=== PATIENT | male | born 1950 | race Caucasian/White ===

== ENCOUNTER 2017-12-11 10:11 | Inpatient (IN) | payer MEDICARE ==
[2017-12-11] MEDS ORDERED: FUROSEMIDE 10 MG/ML 4 ML VIAL IV STA (10:56)
[2017-12-11] MEDS ORDERED: NITROGLYCERIN OINT 1 INCH/GM PACKET TOPICAL STA (10:56)
[2017-12-11] MEDS ORDERED: ASPIRIN 81 MG PO STA (10:57)
--- NOTE | 2017-12-11 11:20 | ED ---
General Adult HPI - General Chief complaint: Extremity Problem,Nontraumatic Stated complaint: poss allergic/medication reaction Time Seen by Provider: 12/11/17 10:48 Source: patient Mode of arrival: ambulatory Limitations: no limitations - History of Present Illness Initial comments: This 67-year-old white male presents with a complaint of shortness of breath and leg swelling. This is been present for approximately 6 days. He does complain of exertional dyspnea as well as some orthopnea. He has had a cough with clear production. He denies any fevers or chills. He states that his leg edema is fairly severe. There is no chest pain. He relates that he was seen at [facility] work clinic 6 days ago. The provider apparently listened to his lungs and told him that he has pneumonia. They prescribed him Augmentin and he states that he cannot tolerate it as he was vomiting on it. They stopped this and put him on Bactrim. He seems to think that the swelling is related to the Bactrim. The patient was able to tolerate the Bactrim but this has not helped his symptoms whatsoever. He denies any previous known cardiac disease. He has never had a stress test or echocardiogram. He states that he has no medical complaints but hardly ever goes to see his physician. He normally will have a checkup every 2 years. He denies any other complaints or modifying factors. - Related Data Home Medications Medication Instructions Recorded Confirmed Sulfamethox-Tmp 800-160Mg [Bactrim 1 tab PO DIRECTED 12/11/17 12/11/17 DS 800-160 mg] Allergies Allergy/AdvReac Type Severity Reaction Status Date / Time No Known Allergies Allergy Verified 12/11/17 11:02 Review of Systems ROS Statement: Those systems with pertinent positive or pertinent negative responses have been documented in the HPI. ROS Other: All systems not noted in ROS Statement are negative. Past Medical History Past Medical History: Pneumonia History of Any Multi-Drug Resistant Organisms: None Reported Past Surgical History: No Surgical Hx Reported Past Psychological History: No Psychological Hx Reported Smoking Status: Never smoker Past Alcohol Use History: None Reported Past Drug Use History: None Reported General Exam - General Exam Comments Initial Comments: GENERAL: The patient is well nourished and well hydrated. VITAL SIGNS: Heart rate, blood pressure, respiratory rate reviewed as recorded in nurse's notes. EYES: Pupils are round and reactive. Extraocular movements are intact. No conjunctival / lid redness or swelling. ENT: No external evidence of injury, swelling, or ecchymosis. Airway is patent. Throat is clear. NECK: Nontender. No swelling or evidence of injury. No subcutaneous emphysema. Trachea is midline. No thyroid mass. HEART: Tachycardic irregular rhythm. Good peripheral pulses. LUNGS/CHEST: Mild Rales noted bilateral chest. No ecchymosis, subcutaneous emphysema, or tenderness. ABDOMEN: Abdomen soft without tenderness. No palpable masses or organomegaly. No peritoneal signs. No abdominal wall swelling or ecchymosis. EXTREMITIES: No extremity tenderness. Normal muscle tone and function. No thoracolumbar tenderness. There is significant bilateral lower extremity pitting edema from the knee down. NEUROLOGIC: Sensation is grossly intact. Cranial nerve exam reveals face is symmetrical, tongue is midline, speech is clear. SKIN: No abrasions or ecchymosis is noted. No induration or masses noted. PSYCHIATRIC: Alert and oriented. Appropriate behavior and judgment. Limitations: no limitations Course Vital Signs 12/11/17 12/11/17 12/11/17 10:13 11:31 12:25 Temperature 97.0 F L Pulse Rate 64 122 H 125 H Respiratory 18 16 20 Rate Blood Pressure 149/103 131/93 O2 Sat by Pulse 96 95 97 Oximetry Medical Decision Making - Medical Decision Making The patient was seen and examined. All diagnostics were reviewed. An IV is established and patient receives 80 mg of Lasix IV, Nitropaste, and aspirin. The EKG is done and shows atrial fibrillation with rapid ventricular response and a heart rate of 131. An occasional PVC is noted. There is no acute ST-T wave changes identified. The NC interval is not measurable, the QRS duration is 76, and the QTC intervals 481. The patient's laboratory does show elevation of the BNP. A Cardizem drip is started. It is felt as though he does have atrial fibrillation with rapid ventricular response as well as a degree of congestive heart failure and would require admission to the hospital. The chest x-ray does show some minimal changes of congestive heart failure as well. The case will be discussed with medicine shortly and patient will be admitted to the telemetry unit for full admit. I did discuss with him the need to be on heparin and he refuses. Risks and benefits were discussed and ultimately detail but he still refuses. He initially is reluctant to be admitted to the hospital but eventually does agree. The chest x-ray shows evidence of congestive heart failure. They also note some patchy atelectasis or developing call consolidation in the inferior lingula. He currently does not have any other signs of infection such as an elevated white count or fever. Is felt that his changes are more likely related to his congestive heart failure. Case is discussed with Dr. Hinton and he is agreeable to admission. Approximately 30 minutes of critical care time is utilized and the treatment of the patient. - Lab Data Result diagrams: 12/11/17 11:21 12/11/17 11:21 Lab Results 12/11/17 12/11/17 12/11/17 Range/Units 11:21 11:21 11:21 WBC 10.6 (3.8-10.6) k/uL RBC 5.31 (4.30-5.90) m/uL Hgb 14.2 (13.0-17.5) gm/dL Hct 46.5 (39.0-53.0) % MCV 87.6 (80.0-100.0) fL MCH 26.7 (25.0-35.0) pg MCHC 30.5 L (31.0-37.0) g/dL RDW 14.0 (11.5-15.5) % Plt Count 224 (150-450) k/uL Neutrophils % 64 % Lymphocytes % 23 % Monocytes % 7 % Eosinophils % 3 % Basophils % 1 % Neutrophils # 6.8 (1.3-7.7) k/uL Lymphocytes # 2.5 (1.0-4.8) k/uL Monocytes # 0.7 (0-1.0) k/uL Eosinophils # 0.3 (0-0.7) k/uL Basophils # 0.1 (0-0.2) k/uL Hypochromasia Slight PT (9.0-12.0) sec INR (<1.2) APTT (22.0-30.0) sec Sodium (137-145) mmol/L Potassium (3.5-5.1) mmol/L Chloride (98-107) mmol/L Carbon Dioxide (22-30) mmol/L Anion Gap mmol/L BUN (9-20) mg/dL Creatinine (0.66-1.25) mg/dL Est GFR (MDRD) Af Amer (>60 ml/min/1.73 sqM) Est GFR (MDRD) Non-Af (>60 ml/min/1.73 sqM) Glucose (74-99) mg/dL Calcium (8.4-10.2) mg/dL Total Bilirubin (0.2-1.3) mg/dL AST (17-59) U/L ALT (21-72) U/L Alkaline Phosphatase (38-126) U/L Total Creatine Kinase 59 (55-170) U/L CK-MB (CK-2) 0.9 (0.0-2.4) ng/mL CK-MB (CK-2) Rel Index 1.5 Troponin I 0.028 (0.000-0.034) ng/mL NT-Pro-B Natriuret Pep 1140 pg/mL Total Protein (6.3-8.2) g/dL Albumin (3.5-5.0) g/dL 12/11/17 12/11/17 Range/Units 11:21 11:21 WBC (3.8-10.6) k/uL RBC (4.30-5.90) m/uL Hgb (13.0-17.5) gm/dL Hct (39.0-53.0) % MCV (80.0-100.0) fL MCH (25.0-35.0) pg MCHC (31.0-37.0) g/dL RDW (11.5-15.5) % Plt Count (150-450) k/uL Neutrophils % % Lymphocytes % % Monocytes % % Eosinophils % % Basophils % % Neutrophils # (1.3-7.7) k/uL Lymphocytes # (1.0-4.8) k/uL Monocytes # (0-1.0) k/uL Eosinophils # (0-0.7) k/uL Basophils # (0-0.2) k/uL Hypochromasia PT 10.8 (9.0-12.0) sec INR 1.1 (<1.2) APTT 22.9 (22.0-30.0) sec Sodium 140 (137-145) mmol/L Potassium 5.1 (3.5-5.1) mmol/L Chloride 105 (98-107) mmol/L Carbon Dioxide 29 (22-30) mmol/L Anion Gap 6 mmol/L BUN 20 (9-20) mg/dL Creatinine 0.90 (0.66-1.25) mg/dL Est GFR (MDRD) Af Amer >60 (>60 ml/min/1.73 sqM) Est GFR (MDRD) Non-Af >60 (>60 ml/min/1.73 sqM) Glucose 118 H (74-99) mg/dL Calcium 9.1 (8.4-10.2) mg/dL Total Bilirubin 1.4 H (0.2-1.3) mg/dL AST 57 (17-59) U/L ALT 83 H (21-72) U/L Alkaline Phosphatase 70 (38-126) U/L Total Creatine Kinase (55-170) U/L CK-MB (CK-2) (0.0-2.4) ng/mL CK-MB (CK-2) Rel Index Troponin I (0.000-0.034) ng/mL NT-Pro-B Natriuret Pep pg/mL Total Protein 6.3 (6.3-8.2) g/dL Albumin 3.6 (3.5-5.0) g/dL Disposition Clinical Impression: Congestive heart failure, Hypertension, Lower extremity edema, Dyspnea, Atrial fibrillation with rapid ventricular response Disposition: ADMITTED IP TO THIS HOSP Condition: Fair Referrals: None,Stated [Primary Care Provider] - 1-2 days Time of Disposition: 13:12 Decision Date: 12/11/17 Decision Time: 13:13
[2017-12-11 11:36] LABS: Basophils # (A) 0.1 k/uL (0-0.2); Basophils % (A) 1 %; Eosinophils # (A) 0.3 k/uL (0-0.7); Eosinophils % (A) 3 %; HCT 46.5 % (39.0-53.0); HGB 14.2 gm/dL (13.0-17.5); Hypochromasia Slight; Lymphocytes # (A) 2.5 k/uL (1.0-4.8); Lymphocytes % (A) 23 %; MCH 26.7 pg (25.0-35.0); MCHC 30.5 g/dL (31.0-37.0); MCV 87.6 fL (80.0-100.0); Mean Platelet Volume 8.3; Monocytes # (A) 0.7 k/uL (0-1.0); Monocytes % (A) 7 %; Neutrophils # (A) 6.8 k/uL (1.3-7.7); Neutrophils % (A) 64 %; Platelet Count 224 k/uL (150-450); RBC 5.31 m/uL (4.30-5.90); WBC 10.6 k/uL (3.8-10.6)
[2017-12-11 11:45] LABS: ALT 83 U/L (21-72); AST 57 U/L (17-59); Albumin 3.6 g/dL (3.5-5.0); Alkaline Phosphatase 70 U/L (38-126); Anion Gap 6 mmol/L; Blood Urea Nitrogen 20 mg/dL (9-20); Calcium 9.1 mg/dL (8.4-10.2); Carbon Dioxide 29 mmol/L (22-30); Chloride 105 mmol/L (98-107); Glucose 118 mg/dL (74-99); Potassium 5.1 mmol/L (3.5-5.1); Sodium 140 mmol/L (137-145); Total Bilirubin 1.4 mg/dL (0.2-1.3); Total Protein 6.3 g/dL (6.3-8.2)
[2017-12-11 12:02] LABS: INR 1.1 (<1.2); Partial Thromboplastin Time 22.9 sec (22.0-30.0); Prothrombin Time 10.8 sec (9.0-12.0)
[2017-12-11 12:15] LABS: Creatine Kinase MB 0.9 ng/mL (0.0-2.4); Troponin I 0.028 ng/mL (0.000-0.034)
[2017-12-11] MEDS: DILTIAZEM 125 MG in SODIUM CHLORIDE 0.9% 100 ML IV ONE ×2 (12:19→21:23)
--- NOTE | 2017-12-11 13:16 | XR ---
EXAMINATION TYPE: XR chest 2V DATE OF EXAM: 12/11/2017 COMPARISON: None HISTORY: 67-year-old male difficulty breathing TECHNIQUE: PA and lateral views FINDINGS: Heart mildly enlarged. Diffuse interstitial and vascular prominence. Some patchy inferior lingular de nsity. No significant pleural effusion. IMPRESSION: 1. Mild cardiomegaly and interstitial changes. Correlate for possible mild CHF. 2. Some patchy atelectasis or developing consolidation in the inferior lingula.
[2017-12-11] MEDS ORDERED: DILTIAZEM 5 MG/ML 5 ML VIAL IVP STA (14:24)
[2017-12-11] MEDS: NITROGLYCERIN OINT 1 INCH/GM PACKET TOPICAL SCH ×2 (17:24→21:55)
[2017-12-11 18:24] LABS: Creatine Kinase MB 0.7 ng/mL (0.0-2.4); Troponin I 0.029 ng/mL (0.000-0.034)
[2017-12-11] MEDS ORDERED: HEPARIN SOD,PORK IN 0.45% NACL 25,000 UNIT in 0.45% NACL 1 500ML.BAG IV SCH (19:15)
[2017-12-11] MEDS: FUROSEMIDE 10 MG/ML 4 ML VIAL IV SCH (21:54)
[2017-12-12 02:11] LABS: Creatine Kinase MB 0.6 ng/mL (0.0-2.4)
[2017-12-12 02:15] LABS: Troponin I 0.045 ng/mL (0.000-0.034)
[2017-12-12 09:38] VITALS: BMI 33.6
[2017-12-12] MEDS: NITROGLYCERIN OINT 1 INCH/GM PACKET TOPICAL SCH (09:46)
[2017-12-12] MEDS: FUROSEMIDE 10 MG/ML 4 ML VIAL IV SCH (09:46)
--- NOTE | 2017-12-12 10:04 | ECHOF ---
Referral Reason:Heart Failure MEASUREMENTS -------- HEIGHT: 152.4 cm WEIGHT: 108.9 kg BP: RVIDd: 2.9 cm (< 3.3) IVSd: 1.3 cm (0.6 - 1.1) LVIDd: 4.8 cm (3.9 - 5.3) LVPWd: 1.2 cm (0.6 - 1.1) IVSs: 1.4 cm LVIDs: 4.6 cm LVPWs: 1.0 cm LA Diam: 4.5 cm (2.7 - 3.8) LAESV Index (A-L): 46.22 ml/m Ao Diam: 3.4 cm (2.0 - 3.7) AV Cusp: 1.8 cm (1.5 - 2.6) LA Diam: 4.7 cm (2.7 - 3.8) MV EXCURSION: 12.506 mm (> 18.000) MV EF SLOPE: 117 mm/s (70 - 150) EPSS: 1.6 cm MV E Bob: 1.22 m/s MV DecT: 105 ms MV A Bob: 0.01 m/s MV E/A Ratio: 148.09 RAP: 5.00 mmHg RVSP: 31.81 mmHg FINDINGS -------- Atrial fibrillation. This was a techncally difficult study with suboptimal views, , Definity utilized for enhancement of i mages. The left ventricular size is normal. There is mild concentric left ventricular hypertrophy. There is severe global hypokinesis of LV . Overall left ventricular systolic function is severely impair ed with, an EF < 20%. The right ventricle is normal in size. LA is moderately dilated 34-39 ml/m2 The right atrial size is normal. 1.5mg of Definity was utilized for enhancement of images The aortic valve is trileaflet, and appears structurally normal. No aortic stenosis or regurgitation. The mitral valve is normal. Mild mitral regurgitation is present. Mild tricuspid regurgitation present. There is mild pulmonary hypertension. The right ventricular systolic pressure, as measured by Doppler, is 31.81mmHg. Trace/mild (physiologic) pulmonic regurgitation. The aortic root size is normal. There is no pericardial effusion. CONCLUSIONS -------- 1. Atrial fibrillation. 2. This was a techncally difficult study with suboptimal views, , Definity utilized for enhancement o f images. 3. The left ventricular size is normal. 4. There is mild concentric left ventricular hypertrophy. 5. There is severe global hypokinesis of LV . 6. Overall left ventricular systolic function is severely impaired with, an EF < 20%. 7. LA is moderately dilated 34-39 ml/m2 8. 1.5mg of Definity was utilized for enhancement of images 9. The aortic valve is trileaflet, and appears structurally normal. No aortic stenosis or regurgitati on. 10. Mild mitral regurgitation is present. 11. Mild tricuspid regurgitation present. 12. There is mild pulmonary hypertension. 13. Trace/mild (physiologic) pulmonic regurgitation. 14. The aortic root size is normal. 15. There is no pericardial effusion. ROASTER HELPER: Ranjana Pascual RDCS
[2017-12-12 11:24] VITALS: BP 111/82; PULSE 51; RESP 14; TEMP 97.9
[2017-12-12] MEDS ORDERED: LISINOPRIL 2.5 MG TAB PO SCH (12:00)
[2017-12-12] MEDS ORDERED: APIXABAN 5 MG TAB PO SCH (12:00)
[2017-12-12] MEDS ORDERED: ASPIRIN 325 MG TAB PO SCH (12:00)
--- NOTE | 2017-12-12 12:16 | PN ---
PROGRESS NOTE DATE OF SERVICE: 12/12/2017 CHIEF COMPLAINT: Congestive heart failure. HISTORY OF PRESENT ILLNESS: This gentleman states he is doing well. He denies chest pain, shortness of breath, etc. His echocardiogram is ominous, however. He has an EF of less than 20 and has a significant left ventricular hypertrophy and poor function. He still is denying the necessity for any medication treatment. He refused the heparin last night. He was explained that there is significant risk of embolization and stroke with atrial fib. PHYSICAL EXAM: His chest is fairly clear and the cardiac exam demonstrates his atrial fib. A murmur is now heard on systole. Abdomen is soft, nontender. EXTREMITIES: Normal. IMPRESSION: 1. Acute congestive heart failure. 2. Atrial fibrillation with rapid ventricular response, probably chronic. 3. Cardiomyopathy. 4. Cardiac murmur. Possibly D2 mitral insufficiency. 5. Hypertension. PLAN: This gentleman should stay in for complete workup including evaluation of his coronary arteries and be started on appropriate medication for his serious congestive cardiomyopathy and arrhythmias. It is not likely that he will. Communications made with Cardiology regarding his lack of compliance. If he leaves, we will make every effort to have him follow up as soon as possible. MMODL / IJN: [id number] /
--- NOTE | 2017-12-12 12:18 | P.CRDCN ---
History of Present Illness Consult date: 12/12/17 Requesting physician: Jorge Alberto Hinton Consult reason: atrial fibrillation Chief complaint: Shortness of breath and leg swelling History of present illness: This is a 67-year-old gentleman with no prior documented history of hypertension, no diabetes, no hyperlipidemia, who has been being treated as an outpatient for a possible pneumonia. He states he was on an initial antibiotic which she couldn't tolerate, subsequent to that started on another medication, and then noticed shortness of breath with associated leg swelling. He went to see a physician at the walk-in clinic, was advised to come to the hospital for further evaluation. On admission here his EKG showed atrial fibrillation with a rapid ventricular response. Chest x-ray showed mild cardiomegaly and interstitial changes, mild CHF. Some patchy atelectasis or developing consolidation in the inferior lingula. Blood pressure 110/80, heart rate in the 60s. CBC is normal, sodium 140, potassium 5.1, BUN 20, creatinine 0.9. AST 57, ALT 83, total bili 1.4, troponin 0.028, 0.029, 0.045. BNP 1140. An echocardiogram with Doppler study was performed which revealed severe global hypokinesia PLV. Overall left ventricular systolic function was severely impaired with an ejection fraction of less than 20%. Dr. Anglin have a lengthy discussion with the patient regarding the importance of anticoagulation for stroke prevention with the A. fib, he also discussed the fact that the patient was in heart failure, and talked about his significantly reduced LV function. In spite of all of this, patient wishes to sign out of the hospital AGAINST MEDICAL ADVICE. He is extremely stressed about his work situation and feels that he continues to be there. Patient states that he will follow-up with Dr. Hinton tomorrow, and Dr. Anglin in one week. We will discontinue the IV Lasix and start the patient on oral Lasix along with Lopressor, ZIA inhibitor, and Eliquis for anticoagulation. We will check his lytes BUN and creatinine in one week, consider initiating Aldactone as an outpatient, at this time we will not start the Aldactone because of elevated potassium levels. Past Medical History Past Medical History: Pneumonia Additional Past Medical History / Comment(s): Pt states this is the first time he has had pneumonia. History of Any Multi-Drug Resistant Organisms: None Reported Past Surgical History: No Surgical Hx Reported Additional Past Surgical History / Comment(s): Pt states he has never had surgery. Past Anesthesia/Blood Transfusion Reactions: No Reported Reaction Smoking Status: Never smoker - Past Family History Mother Family Medical History: No Reported History Additional Family Medical History / Comment(s): Mother was 76yrs old. She rode her bike to the store, came home and fixed something to eat and had a sudden . Father Family Medical History: No Reported History Additional Family Medical History / Comment(s): Father is 91 yrs old. Medications and Allergies Home Medications Medication Instructions Recorded Confirmed Type Sulfamethox-Tmp 800-160Mg [Bactrim 1 tab PO DIRECTED 12/11/17 12/11/17 History DS 800-160 mg] Allergies Allergy/AdvReac Type Severity Reaction Status Date / Time No Known Allergies Allergy Verified 12/11/17 11:02 Physical Exam Vitals: Vital Signs Temp Pulse Pulse Resp BP BP Pulse Ox 12/12/17 11:24 97.9 F 51 L 14 111/82 93 L 12/12/17 10:59 18 12/12/17 08:00 97.0 F L 64 18 117/74 94 L 12/12/17 04:00 98.7 F 82 18 103/58 95 12/12/17 00:00 98.2 F 59 L 18 111/64 95 12/11/17 20:00 98.4 F 75 18 107/69 97 12/11/17 15:27 96.0 F L 66 18 109/74 93 L 12/11/17 14:41 91 16 160/123 97 12/11/17 14:13 116 H 18 209/154 97 12/11/17 12:25 125 H 20 97 Intake and Output 12/11/17 12/12/17 12/12/17 22:59 06:59 14:59 Intake Total 344.25 180 Output Total 1700 2200 Balance -1355.75 -2200 180 Intake: Intake, IV Titration 104.25 Amount Diltiazem 125 mg In 104.25 Sodium Chloride 0.9% 100 ml @ 5 MG/HR 5 mls/hr IV .Q24H ONE Rx#:[id number] Oral 240 180 Output: Urine 1700 2200 Other: Voiding Method Toilet Toilet Urinal Urinal # Voids 1 1 Weight 106.4 kg 106.4 kg Patient Weight 12/13/17 06:59 Weight 106.4 kg PHYSICAL EXAMINATION: HEENT: Head is atraumatic, normocephalic. Pupils equal, round. Neck is supple. There is elevated jugular venous pressure up to the angle of the jaw. HEART EXAMINATION: S1 and S2 irregularly irregular CHEST EXAMINATION: Lungs reveal rales to bilateral bases. ABDOMEN: Soft, nontender. Bowel sounds are heard. No organomegaly noted. EXTREMITIES: 2+ peripheral pulses with trace evidence of peripheral edema and no calf tenderness noted. NEUROLOGIC patient is awake, alert and oriented -3. . Results 12/11/17 11:21 12/11/17 11:21 Cardiac Enzymes 12/11/17 12/11/17 12/11/17 Range/Units 11:21 11:21 17:34 AST 57 (17-59) U/L CK-MB (CK-2) 0.9 0.7 (0.0-2.4) ng/mL Troponin I 0.028 0.029 (0.000-0.034) ng/mL 12/12/17 Range/Units 01:26 AST (17-59) U/L CK-MB (CK-2) 0.6 (0.0-2.4) ng/mL Troponin I 0.045 H* (0.000-0.034) ng/mL Coagulation 12/11/17 Range/Units 11:21 PT 10.8 (9.0-12.0) sec APTT 22.9 (22.0-30.0) sec Comprehensive Metabolic Panel 12/11/17 Range/Units 11:21 Sodium 140 (137-145) mmol/L Potassium 5.1 (3.5-5.1) mmol/L Chloride 105 (98-107) mmol/L Carbon Dioxide 29 (22-30) mmol/L BUN 20 (9-20) mg/dL Creatinine 0.90 (0.66-1.25) mg/dL Glucose 118 H (74-99) mg/dL Calcium 9.1 (8.4-10.2) mg/dL AST 57 (17-59) U/L ALT 83 H (21-72) U/L Alkaline Phosphatase 70 (38-126) U/L Total Protein 6.3 (6.3-8.2) g/dL Albumin 3.6 (3.5-5.0) g/dL Current Medications Generic Name Dose Route Start Last Admin Trade Name Marina PRN Reason Stop Dose Admin Aspirin 325 mg 12/12/17 12:00 12/12/17 09:46 Aspirin PO 325 mg DAILY FABIAN Administration Furosemide 40 mg 12/11/17 21:00 12/12/17 09:46 Lasix IV 40 mg Q12H FABIAN Administration Diltiazem HCl 125 mg/ Sodium 125 mls @ 5 mls/hr 12/11/17 11:48 12/11/17 21:23 Chloride IV 12/12/17 11:47 15 mg/hr .Q24H ONE 15 mls/hr Protocol Administration 5 MG/HR Heparin Sodium/Sodium Chloride 500 mls @ 39.19 mls/hr 12/11/17 19:15 25,000 unit/ Sodium Chloride IV .[id number] [facility] Protocol 18 UNITS/KG/HR Nitroglycerin 1 inch 12/11/17 18:00 12/12/17 09:46 Nitro-Bid Oint TOPICAL 1 inch QID FABIAN Administration Intake and Output 12/11/17 12/12/17 12/12/17 22:59 06:59 14:59 Intake Total 344.25 180 Output Total 1700 2200 Balance -1355.75 -2200 180 Intake: Intake, IV Titration 104.25 Amount Diltiazem 125 mg In 104.25 Sodium Chloride 0.9% 100 ml @ 5 MG/HR 5 mls/hr IV .Q24H ONE Rx#:[id number] Oral 240 180 Output: Urine 1700 2200 Other: Voiding Method Toilet Toilet Urinal Urinal # Voids 1 1 Weight 106.4 kg 106.4 kg Patient Weight 12/13/17 06:59 Weight 106.4 kg 12/11/17 11:21 12/11/17 11:21 EKG Interpretations (text) EKG shows atrial fibrillation with a rapid ventricular response. Assessment and Plan Plan: Assessment and plan #1 systolic congestive heart failure acute on chronic #2 newly diagnosed cardiomyopathy with an ejection fraction of less than 20%, unknown etiology. #3 atrial fibrillation with rapid ventricular response, new onset, unsure if it is paroxysmal or chronic at this time. Plan We will discontinue the IV Lasix and start the patient on Lasix 40 mg by mouth twice a day. Initiate beta dalila, ZIA inhibitor, and start the patient on Eliquis 5 mg one tablet by mouth twice a day, discontinue IV heparin. Check lytes BUN and creatinine in one week. Patient has been strongly advised to stay in the hospital for further treatment, he however wishes to sign out AGAINST MEDICAL ADVICE. A follow-up appointment has been made with Dr. Hinton for tomorrow, and we will schedule him to see Dr. Anglin within one week in the office. DNP note has been reviewed, I agree with a documented findings and plan of care. Patient was seen and examined.
--- NOTE | 2017-12-12 12:22 | HP ---
HISTORY AND PHYSICAL CHIEF COMPLAINT: Shortness of breath. HISTORY OF PRESENT ILLNESS: This is the first admission for this 67-year-old white male. He considers himself to be in excellent health and has never had and denies any health problems, being under doctor's care, taking any medications, etc. He presented to the emergency room with shortness of breath. He also noticed that he was having a little bit of swelling. In the emergency room, he was found to be in atrial fibrillation with a heart rate around 135 beats a minute and he was dyspneic. BNP was also elevated at 1140. He denied any chest pain. He denied history of rheumatic fever, murmurs, orthopnea, PND, cough, hemoptysis, history of significant hypertension, etc. He states that he had been told in the past that his blood pressure is up occasionally, but that, "whenever he would sit down and rest, it would go down to normal". In the emergency room, his blood pressure was significantly elevated, but did come down after several readings. He denies any neurologic deficits, change in vision or hearing, syncope, etc. He is completely in denial and states there is nothing wrong with him and he has never had any health problems. He refuses to take any medicine or undergo any procedures no matter what is found. REVIEW OF SYSTEMS: He has had no other history. He has had no abdominal pain, nausea, vomiting, melena, hematochezia, jaundice, hematuria, frequency, urgency, nocturia, hesitancy, renal failure, diabetes, etc. Past medical history, family history, personal and social histories are unremarkable and noncontributory. He is not allergic to any medicine and he is not taking any. He has had no surgery. He does not use alcohol or smoke. He still works as a construction equipment mechanic helper. PHYSICAL EXAM: Blood pressure is 209/154 with a pulse of 135 and irregularly irregular. Respirations were 43. He is afebrile. In general, he appeared to be overweight in no acute distress. Skin color is normal. Skin is warm, dry. Lymph nodes not enlarged. Head, ears, eyes, nose, mouth, and throat were normal and neck veins could not be assessed. Thyroid was not enlarged. The chest demonstrated fairly good breath sounds bilaterally with occasional rales. Cardiac exam demonstrated tachycardia and no definite murmur or S3 or S4 was heard. The abdomen is soft, nontender without any visceromegaly or masses. Bowel sounds are present. Extremities are normal. Neurologically, he is intact. He is admitted to the hospital with the diagnoses: 1. Acute congestive heart failure. 2. Atrial fibrillation with rapid ventricular response. 3. Hypertension. PLAN: 1. Bed rest. 2. IV fluids. 3. Control blood pressure. 4. Echocardiogram. 5. Cardiology consult. 6. Anticoagulate with heparin (refused). MMODL / IJN: [id number] /
[2017-12-12] MEDS ORDERED: FUROSEMIDE 40 MG TAB PO SCH (16:00)
[2017-12-12] MEDS ORDERED: METOPROLOL TARTRATE 25 MG TAB PO SCH (21:00)
--- NOTE | 2017-12-15 16:28 | DS ---
DISCHARGE SUMMARY CHIEF COMPLAINT: Shortness of breath. HISTORY OF PRESENT ILLNESS AND PHYSICAL EXAM: Details of this man's history and physical can be found in the initial workup. LABORATORY STUDIES: While he was in a hospital he had laboratory studies details which can be found in the laboratory section of chart. COURSE IN HOSPITAL: After admission he was placed in bedrest, started on intravenous fluids and seen by Cardiology. His studies indicated that he had a significant congestive cardiomyopathy with a EF of less than 25%. He was very reluctant to accept the diagnosis and was resistant to any further testing or treatment. He was finally convinced to go home on some medication and followup shortly. He will be discharged and seen in a day or two. FINAL DIAGNOSES: 1. Acute congestive heart failure. 2. Chronic congestive heart failure. 3. Cardiomyopathy. 4. Atrial fibrillation. 5. Hypertension. 6. Murmur. OPERATIONS: None. CONSULTATION: Cardiology. He is improved. MMLARAL / LANCEN: [id number] /
== END 2017-12-12 12:58 | disposition home or self-care (01) | DRG 292 ==
LOC: EC 10:11 → 6SEL 13:26
PROVIDERS: ADMIT Family Medicine; ATTEND Family Medicine
DX: I11.0 Hypertensive heart disease with heart failure (principal); J98.11 Atelectasis; I42.9 Cardiomyopathy, unspecified; I48.0 Paroxysmal atrial fibrillation; I50.23 Acute on chronic systolic (congestive) heart failure; I49.3 Ventricular premature depolarization; I48.2 Chronic atrial fibrillation; I34.0 Nonrheumatic mitral (valve) insufficiency
CPT/HCPCS: 36415; 71046; 80053; 82550; 82553; 83880; 84484; 85025; 85610; 85730; 87040; 93005; 93306; 96374; 96375; 99285

== ENCOUNTER 2017-12-18 12:20 | Emergency (ER) | payer MEDICARE ==
[2017-12-18 12:46] VITALS: TEMP 99.2
[2017-12-18 13:12] LABS: Basophils % (A) 1 %; Eosinophils # (A) 0.2 k/uL (0-0.7); Eosinophils % (A) 4 %; HCT 45.1 % (39.0-53.0); HGB 13.8 gm/dL (13.0-17.5); Hypochromasia Slight; Lymphocytes # (A) 1.1 k/uL (1.0-4.8); Lymphocytes % (A) 18 %; MCH 26.6 pg (25.0-35.0); MCHC 30.6 g/dL (31.0-37.0); Mean Platelet Volume 7.9; Monocytes # (A) 0.8 k/uL (0-1.0); Monocytes % (A) 13 %; Neutrophils # (A) 3.6 k/uL (1.3-7.7); Neutrophils % (A) 61 %; Platelet Count 181 k/uL (150-450); RBC 5.19 m/uL (4.30-5.90); RDW 13.9 % (11.5-15.5); WBC 5.9 k/uL (3.8-10.6)
[2017-12-18 13:22] LABS: INR 1.1 (<1.2); Partial Thromboplastin Time 25.8 sec (22.0-30.0); Prothrombin Time 10.8 sec (9.0-12.0)
[2017-12-18 13:24] LABS: ALT 51 U/L (21-72); AST 35 U/L (17-59); Albumin 3.3 g/dL (3.5-5.0); Alkaline Phosphatase 78 U/L (38-126); Anion Gap 9 mmol/L; Blood Urea Nitrogen 24 mg/dL (9-20); Calcium 8.4 mg/dL (8.4-10.2); Carbon Dioxide 31 mmol/L (22-30); Chloride 98 mmol/L (98-107); Glucose 142 mg/dL (74-99); Potassium 4.1 mmol/L (3.5-5.1); Sodium 138 mmol/L (137-145); Total Bilirubin 0.7 mg/dL (0.2-1.3)
[2017-12-18 13:27] LABS: Creatine Kinase 61 U/L (55-170)
[2017-12-18] MEDS ORDERED: FUROSEMIDE 10 MG/ML 4 ML VIAL IV STA (13:34)
--- NOTE | 2017-12-18 13:38 | ED ---
SOB HPI - General Chief Complaint: Shortness of Breath Stated Complaint: SOB Time Seen by Provider: 12/18/17 13:10 Source: patient, RN notes reviewed Mode of arrival: ambulatory Limitations: no limitations - History of Present Illness Initial Comments: This is a 67-year-old male history of CHF who was seen by his doctor last week who is here today because he has persistent shortness of breath especially orthopnea and some exertional dyspnea. He has a cough when he is concerned he may have pneumonia as well as perhaps CHF. He states he has been losing weight and that does concern him he does have edema to his lower extremities but apparently these are improved over last week. He denies any sore throat rhinorrhea earaches overt chest pain palpitations or other symptoms. The patient does state he believes his Lasix is not working. MD Complaint: shortness of breath, cough - Related Data Previous Rx's Medication Instructions Recorded Apixaban [Eliquis] 5 mg PO BID #60 tab 12/12/17 Furosemide [Lasix] 40 mg PO BID@0900,1600 #60 tab 12/12/17 Lisinopril [Zestril] 2.5 mg PO DAILY #30 tab 12/12/17 Metoprolol Tartrate [Lopressor] 25 mg PO BID #60 tab 12/12/17 Ipratropium/Albuterol Sulfate 2 puff INHALATION QID #1 inhaler 12/18/17 [Combivent Respimat Inhaler] Allergies Allergy/AdvReac Type Severity Reaction Status Date / Time No Known Allergies Allergy Verified 12/18/17 13:28 Review of Systems ROS Statement: Those systems with pertinent positive or pertinent negative responses have been documented in the HPI. ROS Other: All systems not noted in ROS Statement are negative. Past Medical History Past Medical History: Heart Failure, Pneumonia Additional Past Medical History / Comment(s): Pt states this is the first time he has had pneumonia. History of Any Multi-Drug Resistant Organisms: None Reported Past Surgical History: No Surgical Hx Reported Additional Past Surgical History / Comment(s): Pt states he has never had surgery. Past Anesthesia/Blood Transfusion Reactions: No Reported Reaction Past Psychological History: No Psychological Hx Reported Smoking Status: Never smoker Past Alcohol Use History: None Reported Past Drug Use History: None Reported - Past Family History Mother Family Medical History: No Reported History Additional Family Medical History / Comment(s): Mother was 76yrs old. She rode her bike to the store, came home and fixed something to eat and had a sudden . Father Family Medical History: No Reported History Additional Family Medical History / Comment(s): Father is 91 yrs old. General Exam - General Exam Comments Initial Comments: This is a well-developed well-nourished awake alert oriented times 3 male Limitations: no limitations General appearance: alert, in no apparent distress Head exam: Present: atraumatic, normocephalic, normal inspection Eye exam: Present: normal appearance, PERRL, EOMI. Absent: scleral icterus, conjunctival injection, periorbital swelling ENT exam: Present: normal exam, mucous membranes moist Neck exam: Present: normal inspection. Absent: tenderness, meningismus, lymphadenopathy Respiratory exam: Present: rales, decreased breath sounds. Absent: respiratory distress, wheezes, rhonchi, stridor Cardiovascular Exam: Present: tachycardia, irregular rhythm, normal heart sounds. Absent: systolic murmur, diastolic murmur, rubs, gallop, clicks GI/Abdominal exam: Present: soft, normal bowel sounds. Absent: distended, tenderness, guarding, rebound, rigid Extremities exam: Present: full ROM, normal capillary refill, pedal edema, other (Pedal edema up to the knees.). Absent: tenderness, joint swelling, calf tenderness Back exam: Present: normal inspection Neurological exam: Present: alert, oriented X3, CN II-XII intact Psychiatric exam: Present: normal affect, normal mood Skin exam: Present: warm, dry, intact, normal color. Absent: rash Course Vital Signs 12/18/17 12/18/17 12:43 14:17 Temperature 99.2 F Pulse Rate 103 H 77 Respiratory 18 18 Rate Blood Pressure 111/63 120/68 O2 Sat by Pulse 96 96 Oximetry - Reevaluation(s) Reevaluation #1: 12/18/17 15:54 Patient initially is refusing have a CAT scan done. I did discuss this with Dr. Hinton will also suggested the CAT scan be done after explaining the situation. Patient maintains refused and would like to be discharged and try an inhaler instead. I did a long discussion with him lasting 10-15 minutes regarding the findings this is after initial conversation with him earlier. Medical Decision Making - Medical Decision Making The patient does have a recent diagnosis of atrial fibrillation and cardiomyopathy with the ejection fraction less than 25. He has been having orthopnea. He has been losing weight and indicating that his peripheral edema is improving. He does not want to have a CAT scan or further workup at this time he doesn't fact want to be discharged to follow-up with cardiology tomorrow as planned he has agreed to accept an inhaler to see if this helps with his breathing. He is invited to come back at any time for any reason. The patient does state he is feeling better since arrival here. He will continue with his current medications he will follow-up with cardiology and with Dr. Hinton. - Lab Data Result diagrams: 12/18/17 12:53 12/18/17 12:53 Lab Results 12/18/17 12/18/17 12/18/17 Range/Units 12:53 12:53 12:53 WBC 5.9 (3.8-10.6) k/uL RBC 5.19 (4.30-5.90) m/uL Hgb 13.8 (13.0-17.5) gm/dL Hct 45.1 (39.0-53.0) % MCV 87.0 (80.0-100.0) fL MCH 26.6 (25.0-35.0) pg MCHC 30.6 L (31.0-37.0) g/dL RDW 13.9 (11.5-15.5) % Plt Count 181 (150-450) k/uL Neutrophils % 61 % Lymphocytes % 18 % Monocytes % 13 % Eosinophils % 4 % Basophils % 1 % Neutrophils # 3.6 (1.3-7.7) k/uL Lymphocytes # 1.1 (1.0-4.8) k/uL Monocytes # 0.8 (0-1.0) k/uL Eosinophils # 0.2 (0-0.7) k/uL Basophils # 0.0 (0-0.2) k/uL Hypochromasia Slight PT (9.0-12.0) sec INR (<1.2) APTT (22.0-30.0) sec D-Dimer (<0.60) mg/L FEU Sodium (137-145) mmol/L Potassium (3.5-5.1) mmol/L Chloride (98-107) mmol/L Carbon Dioxide (22-30) mmol/L Anion Gap mmol/L BUN (9-20) mg/dL Creatinine (0.66-1.25) mg/dL Est GFR (MDRD) Af Amer (>60 ml/min/1.73 sqM) Est GFR (MDRD) Non-Af (>60 ml/min/1.73 sqM) Glucose (74-99) mg/dL Calcium (8.4-10.2) mg/dL Magnesium (1.6-2.3) mg/dL Total Bilirubin (0.2-1.3) mg/dL AST (17-59) U/L ALT (21-72) U/L Alkaline Phosphatase (38-126) U/L Total Creatine Kinase 61 (55-170) U/L CK-MB (CK-2) <0.2 (0.0-2.4) ng/mL CK-MB (CK-2) Rel Index Troponin I 0.026 (0.000-0.034) ng/mL NT-Pro-B Natriuret Pep 811 pg/mL Total Protein (6.3-8.2) g/dL Albumin (3.5-5.0) g/dL 12/18/17 12/18/17 12/18/17 Range/Units 12:53 12:53 12:53 WBC (3.8-10.6) k/uL RBC (4.30-5.90) m/uL Hgb (13.0-17.5) gm/dL Hct (39.0-53.0) % MCV (80.0-100.0) fL MCH (25.0-35.0) pg MCHC (31.0-37.0) g/dL RDW (11.5-15.5) % Plt Count (150-450) k/uL Neutrophils % % Lymphocytes % % Monocytes % % Eosinophils % % Basophils % % Neutrophils # (1.3-7.7) k/uL Lymphocytes # (1.0-4.8) k/uL Monocytes # (0-1.0) k/uL Eosinophils # (0-0.7) k/uL Basophils # (0-0.2) k/uL Hypochromasia PT 10.8 (9.0-12.0) sec INR 1.1 (<1.2) APTT 25.8 (22.0-30.0) sec D-Dimer (<0.60) mg/L FEU Sodium 138 (137-145) mmol/L Potassium 4.1 (3.5-5.1) mmol/L Chloride 98 (98-107) mmol/L Carbon Dioxide 31 H (22-30) mmol/L Anion Gap 9 mmol/L BUN 24 H (9-20) mg/dL Creatinine 1.00 (0.66-1.25) mg/dL Est GFR (MDRD) Af Amer >60 (>60 ml/min/1.73 sqM) Est GFR (MDRD) Non-Af >60 (>60 ml/min/1.73 sqM) Glucose 142 H (74-99) mg/dL Calcium 8.4 (8.4-10.2) mg/dL Magnesium 2.0 (1.6-2.3) mg/dL Total Bilirubin 0.7 (0.2-1.3) mg/dL AST 35 (17-59) U/L ALT 51 (21-72) U/L Alkaline Phosphatase 78 (38-126) U/L Total Creatine Kinase (55-170) U/L CK-MB (CK-2) (0.0-2.4) ng/mL CK-MB (CK-2) Rel Index Troponin I (0.000-0.034) ng/mL NT-Pro-B Natriuret Pep pg/mL Total Protein 6.0 L (6.3-8.2) g/dL Albumin 3.3 L (3.5-5.0) g/dL 12/18/17 Range/Units 12:53 WBC (3.8-10.6) k/uL RBC (4.30-5.90) m/uL Hgb (13.0-17.5) gm/dL Hct (39.0-53.0) % MCV (80.0-100.0) fL MCH (25.0-35.0) pg MCHC (31.0-37.0) g/dL RDW (11.5-15.5) % Plt Count (150-450) k/uL Neutrophils % % Lymphocytes % % Monocytes % % Eosinophils % % Basophils % % Neutrophils # (1.3-7.7) k/uL Lymphocytes # (1.0-4.8) k/uL Monocytes # (0-1.0) k/uL Eosinophils # (0-0.7) k/uL Basophils # (0-0.2) k/uL Hypochromasia PT (9.0-12.0) sec INR (<1.2) APTT (22.0-30.0) sec D-Dimer 1.28 H (<0.60) mg/L FEU Sodium (137-145) mmol/L Potassium (3.5-5.1) mmol/L Chloride (98-107) mmol/L Carbon Dioxide (22-30) mmol/L Anion Gap mmol/L BUN (9-20) mg/dL Creatinine (0.66-1.25) mg/dL Est GFR (MDRD) Af Amer (>60 ml/min/1.73 sqM) Est GFR (MDRD) Non-Af (>60 ml/min/1.73 sqM) Glucose (74-99) mg/dL Calcium (8.4-10.2) mg/dL Magnesium (1.6-2.3) mg/dL Total Bilirubin (0.2-1.3) mg/dL AST (17-59) U/L ALT (21-72) U/L Alkaline Phosphatase (38-126) U/L Total Creatine Kinase (55-170) U/L CK-MB (CK-2) (0.0-2.4) ng/mL CK-MB (CK-2) Rel Index Troponin I (0.000-0.034) ng/mL NT-Pro-B Natriuret Pep pg/mL Total Protein (6.3-8.2) g/dL Albumin (3.5-5.0) g/dL - EKG Data -: EKG Interpreted by Me (Atrial fibrillation rate 112 QRS 82 ET since QTC of 352/480 nonspecific T-w) - Radiology Data Radiology results: report reviewed (I did review the imaging and reports no acute findings.), image reviewed Disposition Clinical Impression: Orthopnea, Chronic atrial fibrillation, Cardiomyopathy, Bronchospasm Disposition: HOME SELF-CARE Condition: Stable Instructions: Bronchospasm (ED), A-fib (Atrial Fibrillation) (ED), Hypertrophic Cardiomyopathy (ED) Prescriptions: Ipratropium/Albuterol Sulfate [Combivent Respimat Inhaler] 2 puff INHALATION QID #1 inhaler Referrals: Jorge Alberto Hinton MD [Primary Care Provider] - 1-2 days
[2017-12-18 13:40] LABS: Creatine Kinase MB <0.2 ng/mL (0.0-2.4); Troponin I 0.026 ng/mL (0.000-0.034)
--- NOTE | 2017-12-18 14:38 | XR ---
EXAMINATION TYPE: XR chest 2V DATE OF EXAM: 12/18/2017 COMPARISON: 12/11/2017 HISTORY: 67-year-old male difficulty breathing TECHNIQUE: Frontal and lateral views FINDINGS: Heart upper limits of normal in size. Aorta within normal limits. Improved appearance to the intersti tium as compared to prior exam. Some residual densities at the inferior lingula with improvement in a eration as compared to 12/11/2017. No pleural effusion. IMPRESSION: 1. Improving atelectasis or infiltrate at the inferior lingula. 2. Otherwise, no acute process identified.
[2017-12-18] MEDS ORDERED: RX INFO: IV CONTRAST WAS GIVEN 1 EACH MISC MISCELLANE PRN (14:54)
[2017-12-18 16:10] VITALS: BP 92/65; PULSE 106; RESP 20
== END 2017-12-18 16:10 | disposition home or self-care (01) ==
LOC: EC 12:20
DX: J98.01 Acute bronchospasm (principal); I48.91 Unspecified atrial fibrillation; I42.9 Cardiomyopathy, unspecified; Z87.01 Personal history of pneumonia (recurrent)
CPT/HCPCS: 36415; 93005; 85379; 83880; 80053; 82550; 82553; 83735; 84484; 85025; 85610; 85730; 71046; 99285; 96374; J1940

== ENCOUNTER → 2018-01-11 | Outpatient (CLI) | payer MEDICARE ==
--- NOTE | 2018-01-12 19:41 | ECHOF ---
Referral Reason: MEASUREMENTS -------- HEIGHT: 172.7 cm WEIGHT: 102.1 kg BP: 131/83 RVIDd: 3.3 cm (< 3.3) IVSd: 1.0 cm (0.6 - 1.1) LVIDd: 5.2 cm (3.9 - 5.3) LVPWd: 1.1 cm (0.6 - 1.1) IVSs: 1.2 cm LVIDs: 4.8 cm LVPWs: 1.3 cm LA Diam: 3.8 cm (2.7 - 3.8) LAESV Index (A-L): 30.60 ml/m Ao Diam: 3.4 cm (2.0 - 3.7) AV Cusp: 2.3 cm (1.5 - 2.6) MV EXCURSION: 13.189 mm (> 18.000) MV EF SLOPE: 130 mm/s (70 - 150) EPSS: 1.2 cm RAP: 15.00 mmHg RVSP: 46.22 mmHg FINDINGS -------- Atrial fibrillation. This was a technically difficult study with suboptimal views. The left ventricular size is normal. There is borderline concentric left ventricular hypertrophy. Overall left ventricular systolic function is severely impaired with, an EF between 20 - 25 %. The right ventricle is mildly enlarged. LA is midly dilated 29-33ml/m2. The right atrium is normal in size. 5.0mg OF Lumason UTLIZED: 2 OR MORE WALL SEGMENTS NOT VISUALIZED. There is mild aortic valve sclerosis. Mild mitral annular calcification present. Mild mitral regurgitation is present. Mild tricuspid regurgitation present. There is moderate pulmonary hypertension. The right ventric ular systolic pressure, as measured by Doppler, is 46.22mmHg. Trace/mild (physiologic) pulmonic regurgitation. The aortic root size is normal. The inferior vena cava is dilated with no significant inspiratory collapse which is consistent estima vanessa right atrial pressure of >15 mmHg. There is no pericardial effusion. CONCLUSIONS -------- 1. Atrial fibrillation. 2. This was a technically difficult study with suboptimal views. 3. The left ventricular size is normal. 4. There is borderline concentric left ventricular hypertrophy. 5. Overall left ventricular systolic function is severely impaired with, an EF between 20 - 25 %. 6. The right ventricle is mildly enlarged. 7. LA is midly dilated 29-33ml/m2. 8. The right atrium is normal in size. 9. 5.0mg OF Lumason UTLIZED: 2 OR MORE WALL SEGMENTS NOT VISUALIZED. 10. There is mild aortic valve sclerosis. 11. Mild mitral annular calcification present. 12. Mild mitral regurgitation is present. 13. Mild tricuspid regurgitation present. 14. There is moderate pulmonary hypertension. 15. The right ventricular systolic pressure, as measured by Doppler, is 46.22mmHg. 16. Trace/mild (physiologic) pulmonic regurgitation. 17. The aortic root size is normal. 18. The inferior vena cava is dilated with no significant inspiratory collapse which is consistent es timated right atrial pressure of >15 mmHg. 19. There is no pericardial effusion. ECONOMIC FORECASTER: Dena Castro RDCS
== END | disposition home or self-care (01) ==
LOC: RADECHMAIN 13:48
PROVIDERS: ATTEND Family Medicine
DX: I08.1 Rheumatic disorders of both mitral and tricuspid valves (principal); I48.91 Unspecified atrial fibrillation
CPT/HCPCS: C8929; Q9950; 93306

== ENCOUNTER → 2018-03-14 | Outpatient (CLI) | payer MEDICARE ==
[2018-03-14 10:46] LABS: INR 1.1 (<1.2); Prothrombin Time 10.7 sec (9.0-12.0)
[2018-03-14 10:49] LABS: HCT 48.1 % (39.0-53.0); HGB 15.4 gm/dL (13.0-17.5); MCH 26.3 pg (25.0-35.0); MCHC 32.1 g/dL (31.0-37.0); MCV 81.8 fL (80.0-100.0); Mean Platelet Volume 7.3; Platelet Count 235 k/uL (150-450); RBC 5.88 m/uL (4.30-5.90); RDW 14.4 % (11.5-15.5); WBC 7.6 k/uL (3.8-10.6)
[2018-03-14 11:01] LABS: Anion Gap 12 mmol/L; Blood Urea Nitrogen 26 mg/dL (9-20); Calcium 9.5 mg/dL (8.4-10.2); Carbon Dioxide 30 mmol/L (22-30); Chloride 98 mmol/L (98-107); Glucose 101 mg/dL (74-99); Potassium 4.4 mmol/L (3.5-5.1); Sodium 140 mmol/L (137-145)
== END ==
LOC: LABWHC1 10:04
PROVIDERS: ATTEND Internal Medicine Cardiovascular Disease
DX: I48.1 Persistent atrial fibrillation (principal)
CPT/HCPCS: 36415; 80048; 85027; 85610

== ENCOUNTER → 2019-07-17 | Outpatient (CLI) | payer MEDICARE ==
[2019-07-17 16:59] LABS: African American GFR (CKD) 80.1 (60.0-200.0); Anion Gap 7.9 mmol/L (4.00-12.00); BUN/Creat Ratio 18.18 Ratio (12.00-20.00); Calcium 9.3 mg/dL (8.7-10.3); Carbon Dioxide 32.1 mmol/L (21.6-31.8); Potassium 4.1 mmol/L (3.5-5.5)
== END | disposition home or self-care (01) ==
LOC: LABWHC1 10:48
PROVIDERS: ATTEND Internal Medicine Clinical Cardiac Electrophysiology
DX: I10 Essential (primary) hypertension (principal); I48.91 Unspecified atrial fibrillation
CPT/HCPCS: 36415; 80048; 84443

== ENCOUNTER → 2019-08-02 | Outpatient (CLI) | payer MEDICARE ==
[2019-08-02 08:14] LABS: African American GFR (CKD) >90 (>60 ml/min/1.73 sqM); Blood Urea Nitrogen 20 mg/dL (9-20)
--- NOTE | 2019-08-02 17:55 | CT ---
EXAMINATION TYPE: CT angio thor/abd pel aorta DATE OF EXAM: 08/02/2019 9:23 AM COMPARISON: None HISTORY: Ventricular premature depolarization CT DLP: 1753 mGycm Automated exposure control for dose reduction was used. TECHNIQUE: Performed with IV Contrast, patient injected with 100 mL of Isovue 370. . FINDINGS: Vascular calcifications within the aorta. Some calcified mediastinal adenopathy is likely present. De scending thoracic aorta at the level of the main pulmonary artery is aneurysmal at 4.7 cm. The main p ulmonary artery bifurcation is 3.1 cm. Coronary artery calcifications present Liver spleen pancreas adrenal glands and kidneys appear unremarkable. Gallbladder appears normal. Vas cular calcifications within the aorta. Inferior vena cava is unremarkable. The appendix were visualiz ed as normal. Loops of bowel without contrast are normal Following contrast administration attention is paid to the aorta. Three-D reconstructed images perfor med separately by the technologist are reviewed. Source images are reviewed. Thoracic aorta: The thoracic aorta at the aortic root is 3.9 cm. Thoracic aorta at the main pulmonary artery level is 4.7 cm. The thoracic aorta at the aortic arch is 3.2 cm. The descending thoracic aor ta at the diaphragm is 2.6 cm. Descending thoracic aorta tapers to its visualized course. No dissecti on is evident. The dominant aorta: No aneurysmal dilatation of the abdominal aorta is evident. No dissection is evid ent. Minimal vascular calcifications within the distal abdominal aorta. Branching vessels appear unre markable. Three-D reconstructed images are unremarkable. IMPRESSION: 1. ASCENDING THORACIC AORTIC ANEURYSM. 2. NO DISSECTION EVIDENT. 3. ABDOMINAL AORTA IS NORMAL.
== END | disposition home or self-care (01) ==
LOC: RADCTMAIN 07:34
PROVIDERS: ATTEND Internal Medicine Clinical Cardiac Electrophysiology
DX: I42.0 Dilated cardiomyopathy (principal); I49.3 Ventricular premature depolarization; I48.91 Unspecified atrial fibrillation; I10 Essential (primary) hypertension; I71.2 Thoracic aortic aneurysm, without rupture; I71.4 Abdominal aortic aneurysm, without rupture
CPT/HCPCS: 82565; 84520; 71275; 36415; 74174; Q9967

== ENCOUNTER → 2019-09-13 | Outpatient (CLI) | payer MEDICARE ==
[2019-09-13 08:37] LABS: MCH 28.8 pg (25.0-35.0); MCV 84.5 fL (80.0-100.0); Mean Platelet Volume 6.7; Platelet Count 237 k/uL (150-450); RBC 4.85 m/uL (4.30-5.90); RDW 12.9 % (11.5-15.5); WBC 8.6 k/uL (3.8-10.6)
[2019-09-13 08:49] LABS: Potassium 4.1 mmol/L (3.5-5.1)
== END | disposition home or self-care (01) ==
LOC: LABPAT 08:01
PROVIDERS: ATTEND Internal Medicine Interventional Cardiology
DX: Z01.812 Encounter for preprocedural laboratory examination (principal); I47.2 Ventricular tachycardia; I48.19 Other persistent atrial fibrillation
CPT/HCPCS: 36415; 80051; 82565; 82947; 84520; 85027

== ENCOUNTER 2019-09-16 06:01 | Day surgery (SDC) | payer MEDICARE ==
[2019-09-12 12:07] VITALS: BMI 32.7
[~2019-09-16 06:01] MED LIST: ALPRAZolam 0.25 MG TAB PO PRN; ALPRAZolam 0.5 MG TAB PO PRN; NITROGLYCERIN SL TABS 0.4 MG TAB SUBLINGUAL PRN; SODIUM CHLORIDE 0.9% 1,000 ML in EMPTY BAG 1 BAG IV ONE
[2019-09-16 06:41] VITALS: TEMP 97.8
[2019-09-16] MEDS ORDERED: ATORVASTATIN 80 MG TAB PO ONE (07:00)
[2019-09-16] MEDS ORDERED: ASPIRIN 325 MG TAB PO ONE (07:00)
[2019-09-16] MEDS ORDERED: SODIUM CHLORIDE 0.9% 1,000 ML IV ONE (07:00)
[2019-09-16] MEDS ORDERED: fentaNYL (PF) 50 MCG/ML 2 ML AMP ONE (07:31)
[2019-09-16] MEDS ORDERED: LIDOCAINE 1% INJ 10MG/ML (20 ML MDV) ONE (07:31)
[2019-09-16] MEDS ORDERED: fentaNYL (PF) 50 MCG/ML 2 ML AMP IV ONE (07:39)
[2019-09-16] MEDS ORDERED: LIDOCAINE 1% INJ 10MG/ML (20 ML MDV) SQ ONE (07:40)
[2019-09-16] MEDS ORDERED: VERAPAMIL SYRINGE (5 MG/10 ML) INTRAARTER ONE (07:42)
[2019-09-16] MEDS ORDERED: HEPARIN SODIUM 1,000 UN/ML (10ML VL) IV ONE (07:45)
[2019-09-16] MEDS ORDERED: HEPARIN SODIUM 1,000 UN/ML (10ML VL) ONE (07:45)
[2019-09-16] MEDS ORDERED: IOPAMIDOL-370 125ML BTL INJ ONE (07:51)
[2019-09-16] MEDS ORDERED: RX INFO: IV CONTRAST WAS GIVEN 1 EACH MISC MISCELLANE PRN (08:07)
[2019-09-16] MEDS ORDERED: SODIUM CHLORIDE 0.9% 1,000 ML IV SCH (08:15)
--- NOTE | 2019-09-16 08:45 | CC ---
CARDIAC CATHETERIZATION REPORT Mr. Purcell is a 69-year-old male who has been followed by Dr. Merino, has a history of atrial fibrillation, status post ablation, was found to have cardiomyopathy and frequent ventricular ectopic activity. In view of that, recommendation was made regarding cardiac catheterization. The procedure as well as the risks and the complications were discussed with the patient who is in full understanding and agreement. PROCEDURE: Patient was brought to the labor contract analyst in a fasting semi-sedated state after receiving fentanyl and Benadryl and achieving moderate conscious sedated state. Using Xylocaine anesthesia in the Seldinger technique, a 6-Comoran sheath was introduced in the right radial artery. Selective right and left coronary angiography performed using 5-Comoran 3.5 bend right and left Charisse catheter. Multiple views of coronary artery including hemiaxial views obtained. Following that 5-Comoran tight pigtail catheter introduced in the left ventricle and pressures were calculated. Following that, catheter and sheath were removed. Hemostasis was obtained with deployment of a TR band. There was no immediate complication. Patient was returned to his room in stable condition. FINDINGS: LEFT MAIN: This is a short size vessel bifurcating left circumflex, left anterior descending artery. Left main coronary artery has no evidence of high-grade stenosis. LEFT ANTERIOR DESCENDING ARTERY: This is a large-sized vessel reaching to the apex with a wraparound apex segment giving rise to 2 diagonal branches of moderate caliber. The left anterior descending artery has no evidence of high-grade stenosis. The takeoff of both diagonal branch has a 30% to 40% plaque without any evidence of high-grade stenosis. LEFT CIRCUMFLEX: This is a nondominant vessel giving rise to 3 obtuse marginal branches. The second one is the largest in caliber. The first obtuse marginal branch ostium has a 30% to 40% plaque. The rest of the vessel has no high-grade stenosis. RIGHT CORONARY ARTERY: This is a dominant vessel, large in caliber bifurcating distally PDA and posterolateral segment and branches. The right coronary artery distally has a 20% to 30% plaque at the bifurcation. The rest of the vessel has no high-grade stenosis. LEFT VENTRICULOGRAM: Left ventriculogram was not performed. HEMODYNAMICS: There was no gradient across the aortic valve. The left ventricle end-diastolic pressure was 14 to 16 mmHg. CONCLUSION: 1. Mild to moderate triple-vessel coronary artery disease. 2. Normal left ventricular size and systolic function. RECOMMENDATION: In view of finding anatomy, I recommend to continue medical therapy with aggressive coronary risk modifications that have been initiated. Those findings and recommendations were discussed with the patient and his family who are in full understanding and agreement. Duration of procedure is 16 minutes. LORRAINE / MALINA: [id number] /
[2019-09-16] MEDS ORDERED: METOPROLOL TARTRATE 25 MG TAB PO SCH (09:00)
[2019-09-16] MEDS ORDERED: LISINOPRIL 2.5 MG TAB PO SCH (09:00)
[2019-09-16 12:35] VITALS: BP 134/72; PULSE 78; RESP 16
== END 2019-09-16 12:35 | disposition home or self-care (01) ==
LOC: CATHCVL 06:01
PROVIDERS: ATTEND Internal Medicine Interventional Cardiology
DX: I25.10 Atherosclerotic heart disease of native coronary artery without angina pectoris (principal); I42.0 Dilated cardiomyopathy; I48.19 Other persistent atrial fibrillation; I11.0 Hypertensive heart disease with heart failure; I50.22 Chronic systolic (congestive) heart failure; I49.3 Ventricular premature depolarization; I47.2 Ventricular tachycardia; I71.2 Thoracic aortic aneurysm, without rupture; E78.00 Pure hypercholesterolemia, unspecified; E66.9 Obesity, unspecified; Z68.33 Body mass index [BMI] 33.0-33.9, adult; Z79.01 Long term (current) use of anticoagulants; Z79.899 Other long term (current) drug therapy
CPT/HCPCS: 93458; J2001; J3010; J1644; Q9967

== ENCOUNTER → 2019-09-25 | Outpatient (CLI) | payer MEDICARE ==
[2019-09-25 11:25] LABS: Chol/HDL Ratio 3.26; LDL Cholesterol,Calculated 93.6 mg/dL (0.0-131.0); VLDL Calculation 28.4 mg/dL (5.00-40.00)
== END | disposition home or self-care (01) ==
LOC: LABWHC1 06:34
PROVIDERS: ATTEND Physician Assistant
DX: E78.5 Hyperlipidemia, unspecified (principal)
CPT/HCPCS: 36415; 80061

== ENCOUNTER → 2020-10-02 | Outpatient (CLI) | payer MEDICARE | END | disposition home or self-care (01) | LOC: LABWHC1 16:57 | PROVIDERS: ATTEND Family Medicine | DX: Z03.818 Encounter for observation for suspected exposure to other biological agents ruled out (principal) | CPT/HCPCS: U0003; C9803 ==

== ENCOUNTER → 2022-01-12 | Outpatient (CLI) | payer MEDICARE ==
[2022-01-13 00:24] LABS: ALT 16 U/L (10-49); AST 14 U/L (14-35); African American GFR (CKD) 64.5 (60.0-200.0); Albumin/Globulin Ratio 1.43 (1.60-3.17); Alkaline Phosphatase 53 U/L (41-126); BUN/Creat Ratio 13.62 Ratio (12.00-20.00); Blood Urea Nitrogen 17.7 mg/dL (9.0-27.0); Calcium 8.8 mg/dL (8.7-10.3); Chloride 104 mmol/L (96-109); Chol/HDL Ratio 5.12 Ratio; Globulin 2.8 g/dL (1.6-3.3); Glucose 77 mg/dL (70-110); LDL Cholesterol,Calculated 127.8 mg/dL (0.0-131.0); Non-African American GFR(CKD) 55.7 (60.0-200.0); Sodium 141 mmol/L (135-145); Total Protein 6.8 g/dL (6.2-8.2)
[2022-01-13 00:58] LABS: Basophils # (A) 0.05 X 10*3/uL (0.00-0.10); Basophils % (A) 0.6 %; Eosinophils # (A) 0.29 X 10*3/uL (0.04-0.35); Eosinophils % (A) 3.7 %; Immature Grans, Automated 0.3 %; Lymphocytes # (A) 2.63 X 10*3/uL (0.90-5.00); Lymphocytes % (A) 33.4 %; MCH 28.2 pg (27.0-32.0); MCHC 31.1 g/dL (32.0-37.0); MCV 90.5 fL (80.0-97.0); Mean Platelet Volume 11.6 fL (9.5-12.2); Monocytes # (A) 0.79 X 10*3/uL (0.20-1.00); NRBC Per 100 WBC 0 /100 WBCS (0.0-0.0); Neutrophils # (A) 4.09 X 10*3/uL (1.80-7.70); Platelet Count 263 X 10*3/uL (140-440); RBC 4.97 X 10*6/uL (4.40-5.60); RDW 13.7 % (11.5-14.5); WBC 7.87 X 10*3/uL (4.50-10.00)
== END | disposition home or self-care (01) ==
LOC: LABWHC1 11:21
PROVIDERS: ATTEND Nurse Practitioner Adult Health
DX: Z00.00 Encounter for general adult medical examination without abnormal findings (principal); I10 Essential (primary) hypertension; E78.5 Hyperlipidemia, unspecified; I25.10 Atherosclerotic heart disease of native coronary artery without angina pectoris; I48.19 Other persistent atrial fibrillation; I50.22 Chronic systolic (congestive) heart failure; I42.0 Dilated cardiomyopathy
CPT/HCPCS: 36415; 80053; 80061; 83735; 84443; 85025

== ENCOUNTER → 2023-05-24 | Outpatient (CLI) | payer MEDICARE ==
[2023-05-24 17:40] LABS: Blood Urea Nitrogen 15.6 mg/dL (9.0-27.0); Chloride 100 mmol/L (96-109); Chol/HDL Ratio 4.49 Ratio; Glucose 94 mg/dL (70-110); LDL Cholesterol,Calculated 158.1 mg/dL (0.0-131.0); Magnesium 2.1 mg/dL (1.5-2.4); Potassium 4.5 mmol/L (3.5-5.5); Sodium 140 mmol/L (135-145)
[2023-05-24 17:41] LABS: ALT 20 U/L (10-49); AST 24 U/L (14-35); Albumin 4.2 d/dL (3.8-4.9); Albumin/Globulin Ratio 1.56 Ratio (1.60-3.17); Alkaline Phosphatase 61 U/L (41-126); Calcium 9.4 mg/dL (8.7-10.3); Carbon Dioxide 28.2 mmol/L (21.6-31.8); Globulin 2.7 d/dL (1.6-3.3); Total Bilirubin 0.7 mg/dL (0.3-1.2); Total Protein 6.9 d/dL (6.2-8.2)
[2023-05-24 17:59] LABS: Basophils # (A) 0.07 X 10*3/uL (0.00-0.10); Basophils % (A) 0.8 %; Eosinophils # (A) 0.26 X 10*3/uL (0.04-0.35); Eosinophils % (A) 3.1 %; HCT 45.3 % (39.6-50.0); HGB 14.7 d/dL (13.0-17.0); Lymphocytes # (A) 2.32 X 10*3/uL (0.90-5.00); Lymphocytes % (A) 27.9 %; MCH 28.1 pg (27.0-32.0); MCHC 32.5 d/dL (32.0-37.0); MCV 86.6 FL (80.0-97.0); Mean Platelet Volume 11.5 FL (9.5-12.2); Monocytes # (A) 0.95 X 10*3/uL (0.20-1.00); Monocytes % (A) 11.4 %; NRBC Per 100 WBC 0 X 10*3/uL (0.00-0.01); Neutrophils # (A) 4.68 X 10*3/uL (1.80-7.70); Neutrophils % (A) 56.4 %; Platelet Count 236 X 10*3/uL (140-440); RBC 5.23 X 10*6/uL (4.40-5.60); RDW 13.6 % (11.5-14.5); WBC 8.31 X 10*3/uL (4.50-10.00)
== END | disposition home or self-care (01) ==
LOC: LABWHC1 12:07
PROVIDERS: ATTEND Internal Medicine Clinical Cardiac Electrophysiology
DX: I10 Essential (primary) hypertension (principal); I48.19 Other persistent atrial fibrillation; E78.5 Hyperlipidemia, unspecified
CPT/HCPCS: 36415; 80053; 80061; 83735; 84443; 85025

== ENCOUNTER 2023-09-02 14:22 | Emergency (ER) | payer MEDICARE ==
[2023-09-02 14:43] VITALS: BP 153/67; PULSE 60; RESP 20; TEMP 98.6
--- NOTE | 2023-09-02 15:09 | ED ---
General Adult HPI - General Chief complaint: Skin/Abscess/Foreign Body Stated complaint: left leg injury Time Seen by Provider: 09/02/23 14:44 Source: patient, RN notes reviewed Mode of arrival: wheelchair Limitations: no limitations - History of Present Illness Initial comments: 73-year-old male presents emergency Department with chief complaint of left leg redness. Patient states he skinned his zabala a few days ago states is not red, warm on the anterior surface. Patient denies any reported fevers denies any calf pain denies any other associated symptoms. He states she's been using Lotrimin Ultra cream on it. - Related Data Previous Rx's Medication Instructions Recorded Apixaban [Eliquis] 5 mg PO BID #60 tab 12/12/17 Furosemide [Lasix] 40 mg PO BID@0900,1600 #60 tab 12/12/17 Metoprolol Tartrate [Lopressor] 25 mg PO BID #60 tab 12/12/17 lisinopriL [Zestril] 2.5 mg PO DAILY #30 tab 12/12/17 Cephalexin [Keflex] 500 mg PO Q6HR #40 cap 09/02/23 Allergies Allergy/AdvReac Type Severity Reaction Status Date / Time No Known Allergies Allergy Verified 09/02/23 14:38 Review of Systems ROS Statement: Those systems with pertinent positive or pertinent negative responses have been documented in the HPI. ROS Other: All systems not noted in ROS Statement are negative. Past Medical History Past Medical History: Atrial Fibrillation, Coronary Artery Disease (CAD), Heart Failure, Hypertension, Pneumonia Additional Past Medical History / Comment(s): Pt states this is the first time he has had pneumonia. History of Any Multi-Drug Resistant Organisms: None Reported Past Surgical History: Cardiac Ablation Additional Past Surgical History / Comment(s): Pt states he has never had surgery. Past Anesthesia/Blood Transfusion Reactions: No Reported Reaction Past Psychological History: No Psychological Hx Reported Smoking Status: Never smoker Past Alcohol Use History: None Reported Past Drug Use History: None Reported - Past Family History Mother Family Medical History: No Reported History Additional Family Medical History / Comment(s): Mother was 76yrs old. She rode her bike to the store, came home and fixed something to eat and had a sudden . Father Family Medical History: No Reported History Additional Family Medical History / Comment(s): Father is 91 yrs old. General Exam Limitations: no limitations General appearance: alert, in no apparent distress Head exam: Present: atraumatic, normocephalic, normal inspection Respiratory exam: Present: normal lung sounds bilaterally. Absent: respiratory distress, wheezes, rales, rhonchi, stridor Cardiovascular Exam: Present: regular rate, normal rhythm, normal heart sounds. Absent: systolic murmur, diastolic murmur, rubs, gallop, clicks Extremities exam: Present: other (left anterior zabala there is healing wound noted with surrounding erythema there is no surrounding tenderness) Course Vital Signs 09/02/23 14:35 Temperature 98.6 F Pulse Rate 60 Respiratory 20 Rate Blood Pressure 153/67 O2 Sat by Pulse 95 Oximetry Medical Decision Making - Medical Decision Making Was pt. sent in by a medical professional or institution (JIM Escobar, COMMUTATOR UNDERCUTTER, urgent care, hospital, or retirement...) When possible be specific @ -No Did you speak to anyone other than the patient for history (EMS, parent, family, police, friend...)? What history was obtained from this source @ -No Did you review nursing and triage notes (agree or disagree)? Why? @ -I reviewed and agree with nursing and triage notes Were old charts reviewed (outside hosp., previous admission, EMS record, old EKG, old radiological studies, urgent care reports/EKG's, retirement records)? Report findings @ -No old charts were reviewed Differential Diagnosis (chest pain, altered mental status, abdominal pain women, abdominal pain men, vaginal bleeding, weakness, fever, dyspnea, syncope, headache, dizziness, GI bleed, back pain, seizure, CVA, palpatations, mental health, musculoskeletal)? @ -Abrasion, cellulitis EKG interpreted by me (3pts min.). @ -None X-rays interpreted by me (1pt min.). @ -None done CT interpreted by me (1pt min.). @ -None done U/S interpreted by me (1pt. min.). @ -None done What testing was considered but not performed or refused? (CT, X-rays, U/S, labs)? Why? @ -None What meds were considered but not given or refused? Why? @ -None Did you discuss the management of the patient with other professionals (professionals i.e. Dr., PA, COMMUTATOR UNDERCUTTER, lab, RT, psych nurse, social service director, graduate engineer, teacher, fire management officer, housing case manager)? Give summary @ -No Was smoking cessation discussed for >3mins.? @ -No Was critical care preformed (if so, how long)? @ -No Were there social determinants of health that impacted care today? How? (Homelessness, low income, unemployed, alcoholism, drug addiction, transportation, low edu. Level, literacy, decrease access to med. care, care home, rehab)? @ -No Was there de-escalation of care discussed even if they declined (Discuss DNR or withdrawal of care, Hospice)? DNR status @ -No What co-morbidities impacted this encounter? (DM, HTN, Smoking, COPD, CAD, Cancer, CVA, ARF, Chemo, Hep., AIDS, mental health diagnosis, sleep apnea, morbid obesity)? @ -None Was patient admitted / discharged? Hospital course, mention meds given and route, prescriptions, significant lab abnormalities, going to OR and other pertinent info. @ -Discharge patient has evidence of abrasion with surrounding cellulitis patient started on Keflex patient's tetanus is updated return parameters were discussed. Undiagnosed new problem with uncertain prognosis? @ -No Drug Therapy requiring intensive monitoring for toxicity (Heparin, Nitro, Insulin, Cardizem)? @ -No Were any procedures done? @ -No Diagnosis/symptom? @ -Left leg cellulitis Acute, or Chronic, or Acute on Chronic? @ -Acute Uncomplicated (without systemic symptoms) or Complicated (systemic symptoms)? @ -Uncomplicated Side effects of treatment? @ -No Exacerbation, Progression, or Severe Exacerbation? @ -No Poses a threat to life or bodily function? How? (Chest pain, [place], [place], pneumonia, PE, COPD, DKA, ARF, appy, cholecystitis, CVA, Diverticulitis, Homicidal, Suicidal, threat to staff... and all critical care pts) @ -No Disposition Clinical Impression: Left leg cellulitis Disposition: HOME SELF-CARE Condition: Stable Instructions (If sedation given, give patient instructions): Cellulitis (ED) Additional Instructions: Please return to the Emergency Department if symptoms worsen or any other concerns. Prescriptions: Cephalexin [Keflex] 500 mg PO Q6HR #40 cap Is patient prescribed a controlled substance at d/c from ED?: No Referrals: None,Stated [Primary Care Provider] - 1-2 days Time of Disposition: 15:09
[2023-09-02] MEDS ORDERED: DIPH,PERTUS(ACELL)TETVAC-LF 0.5 ML VIAL IM ONE (15:12)
== END 2023-09-02 15:20 | disposition home or self-care (01) ==
LOC: EC 14:22
DX: L03.116 Cellulitis of left lower limb (principal); I25.10 Atherosclerotic heart disease of native coronary artery without angina pectoris; I11.0 Hypertensive heart disease with heart failure; I50.9 Heart failure, unspecified
CPT/HCPCS: 99283

== ENCOUNTER 2023-12-12 12:05 | Emergency (ER) | payer MEDICARE ==
[2023-12-12 12:35] VITALS: BP 126/76; PULSE 48; RESP 16; TEMP 98.6
[2023-12-12] MEDS: KETOROLAC 15 MG/ML 1 ML VIAL IVP STA (12:54)
--- NOTE | 2023-12-12 12:58 | ED ---
General Adult HPI - General Chief complaint: Extremity Problem,Nontraumatic Stated complaint: Left Leg Swollen Time Seen by Provider: 12/12/23 12:10 Source: patient, RN notes reviewed, old records reviewed Mode of arrival: wheelchair Limitations: no limitations - History of Present Illness Initial comments: This is a 73-year-old male who presents to the emergency department complaining of left foot pain. Patient states he is not a diabetic. Patient states the toe is red and hurts underneath the first metatarsal at the distal aspect. Patient denies any injury. Patient denies any recent fever or chills. Patient denies any pain in the ankle calf. Patient does state that the foot is more swollen. - Related Data Previous Rx's Medication Instructions Recorded Apixaban [Eliquis] 5 mg PO BID #60 tab 12/12/17 Furosemide [Lasix] 40 mg PO BID@0900,1600 #60 tab 12/12/17 Metoprolol Tartrate [Lopressor] 25 mg PO BID #60 tab 12/12/17 lisinopriL [Zestril] 2.5 mg PO DAILY #30 tab 12/12/17 Cephalexin [Keflex] 500 mg PO Q6HR #40 cap 09/02/23 Amoxic-Pot Clav 875-125Mg 1 tab PO BID 10 Days #20 tab 12/12/23 [Augmentin 875-125] Allergies Allergy/AdvReac Type Severity Reaction Status Date / Time No Known Allergies Allergy Verified 09/02/23 14:38 Review of Systems ROS Statement: Those systems with pertinent positive or pertinent negative responses have been documented in the HPI. ROS Other: All systems not noted in ROS Statement are negative. Past Medical History Past Medical History: Atrial Fibrillation, Coronary Artery Disease (CAD), Heart Failure, Hypertension, Pneumonia Additional Past Medical History / Comment(s): Pt states this is the first time he has had pneumonia. History of Any Multi-Drug Resistant Organisms: None Reported Past Surgical History: Cardiac Ablation Additional Past Surgical History / Comment(s): Pt states he has never had surgery. Past Anesthesia/Blood Transfusion Reactions: No Reported Reaction Past Psychological History: No Psychological Hx Reported Smoking Status: Never smoker Past Alcohol Use History: None Reported Past Drug Use History: None Reported - Past Family History Mother Family Medical History: No Reported History Additional Family Medical History / Comment(s): Mother was 76yrs old. She rode her bike to the store, came home and fixed something to eat and had a sudden . Father Family Medical History: No Reported History Additional Family Medical History / Comment(s): Father is 91 yrs old. General Exam - General Exam Comments Initial Comments: GENERAL: Patient is well-developed and well-nourished. Patient is nontoxic and well- hydrated and is in mild distress. ENT: Neck is soft and supple. No significant lymphadenopathy is noted. Oropharynx is clear. Moist mucous membranes. EYES: The sclera were anicteric and conjunctiva were pink and moist. Extraocular movements were intact and pupils were equal round and reactive to light. Eyelids were unremarkable. PULMONARY: Unlabored respirations. Good breath sounds bilaterally. No audible rales rhonchi or wheezing was noted. CARDIOVASCULAR: There is a regular rate and rhythm without any murmurs gallops or rubs. ABDOMEN: Soft and nontender with normal bowel sounds. SKIN: Skin is clear with no lesions or rashes and otherwise unremarkable. NEUROLOGIC: Patient is alert and oriented x3. Cranial nerves II through XII are grossly intact. Motor and sensory are also intact. Normal speech, volume and content. Symmetrical smile. MUSCULOSKELETAL: Left first toe is red and very tender and the distal first metatarsal at the plantar surface is very tender PSYCHIATRIC: Normal psychiatric evaluation. Limitations: no limitations Course Vital Signs 12/12/23 12:07 Temperature 98.6 F Pulse Rate 48 L Respiratory 16 Rate Blood Pressure 126/76 O2 Sat by Pulse 95 Oximetry Medical Decision Making - Medical Decision Making Was pt. sent in by a medical professional or institution (, PA, RIPPLER, urgent care, hospital, or prison...) When possible be specific @ -No Did you speak to anyone other than the patient for history (EMS, parent, family, police, friend...)? What history was obtained from this source @ -No Did you review nursing and triage notes (agree or disagree)? Why? @ -I reviewed and agree with nursing and triage notes Were old charts reviewed (outside hosp., previous admission, EMS record, old EKG, old radiological studies, urgent care reports/EKG's, prison records)? Report findings @ -No old charts were reviewed Differential Diagnosis (chest pain, altered mental status, abdominal pain women, abdominal pain men, vaginal bleeding, weakness, fever, dyspnea, syncope, headache, dizziness, GI bleed, back pain, seizure, CVA, palpatations, mental health, musculoskeletal)? @ -Cellulitis, osteomyelitis, fracture, DVT, EKG interpreted by me (3pts min.). @ -As above X-rays interpreted by me (1pt min.). @ -X-ray of the foot showed no acute abnormality. CT interpreted by me (1pt min.). @ -None done U/S interpreted by me (1pt. min.). @ -None done What testing was considered but not performed or refused? (CT, X-rays, U/S, labs)? Why? @ -None What meds were considered but not given or refused? Why? @ -None Did you discuss the management of the patient with other professionals (professionals i.e. , PA, RIPPLER, lab, RT, psych nurse, social media content specialist, coordinator of library services, teacher, mail officer, manager of case management)? Give summary @ -No Was smoking cessation discussed for >3mins.? @ -No Was critical care preformed (if so, how long)? @ -No Were there social determinants of health that impacted care today? How? (Homelessness, low income, unemployed, alcoholism, drug addiction, transportation, low edu. Level, literacy, decrease access to med. care, snf, rehab)? @ -No Was there de-escalation of care discussed even if they declined (Discuss DNR or withdrawal of care, Hospice)? DNR status @ -No What co-morbidities impacted this encounter? (DM, HTN, Smoking, COPD, CAD, Cancer, CVA, ARF, Chemo, Hep., AIDS, mental health diagnosis, sleep apnea, morbid obesity)? @ -None Was patient admitted / discharged? Hospital course, mention meds given and route, prescriptions, significant lab abnormalities, going to OR and other pertinent info. @ -Patient refused his pain medication. Patient had lab work done as well as an x-ray and he left prior to the results being completed. I however did look at the results and did go ahead and send along an antibiotic because I do believe the foot was infected at the big toe. Undiagnosed new problem with uncertain prognosis? @ -No Drug Therapy requiring intensive monitoring for toxicity (Heparin, Nitro, Insulin, Cardizem)? @ -No Were any procedures done? @ -No Diagnosis/symptom? @ -Cellulitis first toe Acute, or Chronic, or Acute on Chronic? @ -Acute Uncomplicated (without systemic symptoms) or Complicated (systemic symptoms)? @ -Complicated Side effects of treatment? @ -No Exacerbation, Progression, or Severe Exacerbation? @ -No Poses a threat to life or bodily function? How? (Chest pain, [place], [place], pneumonia, PE, COPD, DKA, ARF, appy, cholecystitis, CVA, Diverticulitis, Homicidal, Suicidal, threat to staff... and all critical care pts) @ -No - Lab Data Result diagrams: 12/12/23 12:46 12/12/23 12:46 Lab Results 12/12/23 12/12/23 Range/Units 12:46 12:46 WBC 9.7 (3.8-10.6) k/uL RBC 5.05 (4.30-5.90) m/uL Hgb 14.3 (13.0-17.5) gm/dL Hct 43.3 (39.0-53.0) % MCV 85.9 (80.0-100.0) fL MCH 28.3 (25.0-35.0) pg MCHC 33.0 (31.0-37.0) g/dL RDW 13.4 (11.5-15.5) % Plt Count 225 (150-450) k/uL MPV 8.8 Neutrophils % 64 % Lymphocytes % 22 % Monocytes % 9 % Eosinophils % 3 % Basophils % 1 % Neutrophils # 6.1 (1.3-7.7) k/uL Lymphocytes # 2.1 (1.0-4.8) k/uL Monocytes # 0.9 (0-1.0) k/uL Eosinophils # 0.3 (0-0.7) k/uL Basophils # 0.0 (0-0.2) k/uL Sodium 137 (137-145) mmol/L Potassium 3.7 (3.5-5.1) mmol/L Chloride 102 (98-107) mmol/L Carbon Dioxide 29 (22-30) mmol/L Anion Gap 6 mmol/L BUN 18 (9-20) mg/dL Creatinine 1.01 (0.66-1.25) mg/dL Est GFR (CKD-EPI)AfAm 86 (>60 ml/min/1.73 sqM) Est GFR (CKD-EPI)NonAf 75 (>60 ml/min/1.73 sqM) Glucose 102 H (74-99) mg/dL Calcium 9.2 (8.4-10.2) mg/dL Total Bilirubin 1.1 (0.2-1.3) mg/dL AST 21 (17-59) U/L ALT 16 (4-49) U/L Alkaline Phosphatase 64 (38-126) U/L Total Protein 7.3 (6.3-8.2) g/dL Albumin 3.9 (3.5-5.0) g/dL Disposition Clinical Impression: Cellulitis, toe Disposition: LEFT AGAINST MEDICAL ADVICE Prescriptions: Amoxic-Pot Clav 875-125Mg [Augmentin 875-125] 1 tab PO BID 10 Days #20 tab Referrals: Jorge Alberto Hintno MD [Primary Care Provider] - 1-2 days Time of Disposition: 14:48
[2023-12-12 13:01] LABS: Basophils % (A) 1 %; Eosinophils # (A) 0.3 k/uL (0-0.7); Eosinophils % (A) 3 %; HCT 43.3 % (39.0-53.0); HGB 14.3 gm/dL (13.0-17.5); Lymphocytes # (A) 2.1 k/uL (1.0-4.8); Lymphocytes % (A) 22 %; MCH 28.3 pg (25.0-35.0); MCV 85.9 fL (80.0-100.0); Mean Platelet Volume 8.8; Monocytes # (A) 0.9 k/uL (0-1.0); Monocytes % (A) 9 %; Neutrophils # (A) 6.1 k/uL (1.3-7.7); Neutrophils % (A) 64 %; Platelet Count 225 k/uL (150-450); RBC 5.05 m/uL (4.30-5.90); RDW 13.4 % (11.5-15.5); WBC 9.7 k/uL (3.8-10.6)
--- NOTE | 2023-12-12 13:09 | XR ---
EXAMINATION TYPE: XR foot complete 3 views LT DATE OF EXAM: 12/12/2023 Comparison: None Clinical History: 73-year-old male Tender at the distal portion of the first metatars Findings: Mild degenerative change first MTP joint. Marked dorsal midfoot soft tissue swelling. No acute fractu re, subluxation, dislocation is seen. Bipartite tibial sesamoid. Small plantar heel spur. Vascular ca lcifications. Impression: Marked dorsal soft tissue swelling. Mild degenerative change first MTP joint. No acute osseous abnorm ality seen.
[2023-12-12 13:20] LABS: ALT 16 U/L (4-49); AST 21 U/L (17-59); African American GFR (CKD) 86 (>60 ml/min/1.73 sqM); Albumin 3.9 g/dL (3.5-5.0); Alkaline Phosphatase 64 U/L (38-126); Anion Gap 6 mmol/L; Blood Urea Nitrogen 18 mg/dL (9-20); Calcium 9.2 mg/dL (8.4-10.2); Carbon Dioxide 29 mmol/L (22-30); Chloride 102 mmol/L (98-107); Glucose 102 mg/dL (74-99); Non-African American GFR(CKD) 75 (>60 ml/min/1.73 sqM); Potassium 3.7 mmol/L (3.5-5.1); Sodium 137 mmol/L (137-145); Total Bilirubin 1.1 mg/dL (0.2-1.3); Total Protein 7.3 g/dL (6.3-8.2)
== END 2023-12-12 15:04 | disposition left against medical advice (07) ==
LOC: EC 12:05
DX: L03.032 Cellulitis of left toe (principal); I11.0 Hypertensive heart disease with heart failure; I50.9 Heart failure, unspecified; I25.10 Atherosclerotic heart disease of native coronary artery without angina pectoris; Z53.29 Procedure and treatment not carried out because of patient's decision for other reasons
CPT/HCPCS: 36415; 80053; 85025; 87040; 99283